=== PATIENT | female | born 1980 | race Two or more races ===

== ENCOUNTER 2017-06-03 14:34 | Emergency (ER) | payer BC ==
[~2017-06-03] VITALS: Ht 157.5 cm; Wt 50.0 kg
[2017-06-03 16:16] LABS: HEMOGLOBIN 12.3 g/dl (12.0-16.0); IMMATURE GRANULOCYTES 0.3 % (0.0-1.0); MEAN CORPUSCULAR HGB 27.8 pG CALC (26.0-32.0); MEAN CORPUSCULAR HGB CONC 32.4 g/L CALC (32.0-36.0); NEUT# 5.21 thou/uL (2.00-7.15); RED BLOOD COUNT 4.42 mill/uL (4.20-5.60); RED CELL DISTRI WIDTH 13.2 % (11.5-15.5)
[2017-06-03 16:19] LABS: URINE BILIRUBIN - DIPSTICK NEGATIVE (NEGATIVE); URINE BLOOD DIPSTICK LARGE (NEGATIVE); URINE GLUCOSE - DIPSTICK NEGATIVE (NEGATIVE); URINE KETONE NEGATIVE (NEGATIVE); URINE LEUK ESTERASE TRACE (NEGATIVE); URINE NITRITE - DIPSTICK NEGATIVE (Negative); URINE PH 7.5 (4.5-8.0); URINE PROTEIN - DIPSTICK TRACE mg/dL (NEG-TRACE); URINE SPECIFIC GRAVITY 1.015; URINE UROBILINOGEN - DIPSTICK 0.2 E.U./dL (0.2)
[2017-06-03 16:37] LABS: URINE CLARITY SL CLOUDY; URINE COLOR AMBER; URINE WBC 0-2 WBC/hpf (0-5)
[2017-06-03 16:38] LABS: URINE BACTERIA FEW hpf; URINE SQUAMOUS EPITHELIAL CELL MANY EPI/hpf (0-FEW)
[2017-06-03] MEDS ORDERED: AMOXICILLIN500 MG PO (19:07)
[2017-06-03] MEDS ORDERED: VITA-NATAL PO (19:07)
[2017-06-03 19:30] VITALS: BP 105/61
== END 2017-06-03 19:30 | disposition home or self-care (01) | DRG 778 ==
LOC: ED 14:34
PROVIDERS: Family Medicine
DX: O20.0 Threatened abortion (principal); O23.40 Unspecified infection of urinary tract in pregnancy, unspecified trimester; Z3A.00 Weeks of gestation of pregnancy not specified

== ENCOUNTER 2017-06-04 17:23 | Emergency (ER) | payer BC ==
[~2017-06-04] VITALS: Ht 157.5 cm; Wt 50.6 kg
[~2017-06-04 17:23] MED LIST: AMOXICILLIN500 MG PO; VITA-NATAL PO
[2017-06-04 18:43] LABS: HEMATOCRIT 39.1 % (37.0-47.0); HEMOGLOBIN 12.6 g/dl (12.0-16.0); IMMATURE GRANULOCYTES 0.2 % (0.0-1.0); MEAN CELL VOLUME 85.7 fL CALC (80.0-100.0); MEAN CORPUSCULAR HGB 27.6 pG CALC (26.0-32.0); MEAN CORPUSCULAR HGB CONC 32.2 g/L CALC (32.0-36.0); NEUT# 6.65 thou/uL (2.00-7.15); RED BLOOD COUNT 4.56 mill/uL (4.20-5.60); RED CELL DISTRI WIDTH 13.2 % (11.5-15.5)
[2017-06-04 22:35] VITALS: BP 122/63
== END 2017-06-04 22:44 | disposition home or self-care (01) | DRG 779 ==
LOC: ED 17:23
PROVIDERS: Emergency Medicine
DX: O03.9 Complete or unspecified spontaneous abortion without complication (principal)